=== PATIENT | female | born 1980 | race Caucasian/White ===

== ENCOUNTER 2022-10-29 09:18 | Inpatient (IN) ==
[2022-10-29] MEDS ORDERED: KETOROLAC TROMETHAMINE 15 MG/ML VIAL IV STA (09:31)
[2022-10-29] MEDS ORDERED: SODIUM CHLORIDE 0.9% 1000ML 1,000 ML IV STA (09:31)
[2022-10-29] MEDS ORDERED: ONDANSETRON INJ 2 MG/ML 2 ML VIAL IV STA (09:31)
[2022-10-29 10:08] LABS: Hematocrit (blood only) 46.4 % (37.0-47.0); Hemoglobin 16.1 g/dl (12.0-16.0); Mean Corpuscular Hemoglobin 34.9 pg (25.0-34.0); Mean Corpuscular Hgb Conc 34.7 g/dL (32.0-36.0); Mean Corpuscular Volume 100.7 fL (80.0-100.0); Mean Platelet Volume 9.6 fL (9.4-12.4); Platelet Count 177 K/uL (130-400); RDW Coefficient of Variation 12.6 % (11.5-14.5); RDW Standard Deviation 47.1 fL (36.4-46.3); Red Blood Count 4.61 M/uL (4.20-5.40); White Blood Count 8.29 K/ul (4.8-10.8)
--- NOTE | 2022-10-29 10:09 | Emergency Department Note ---
Impression & Plan Hydronephrosis due to obstruction of ureter, Kidney stone on left side, Pyelonephritis ED Provider Note NAME: NATHAN REDDY AGE: 41 SEX: F : 1980 ARRIVES VIA: Walk-In INFORMANT: Patient, ED PROVIDER(S): Rl Barbosa DO CHIEF COMPLAINT: Flank pain HPI: Patient is a 41-year-old female who presented to the emergency department with chills. The patient has been treated for urinary tract infection over the course the last month multiple times. The patient started having shaking and chills and it was advised that she go to the emergency department. She has no history of kidney stones. She has seen her GI doctor for abdominal bloating recently. She denies having any vomiting. She denies having any rectal bleeding. Last time she had a urinalysis she was told it was positive for hematuria. She denies having any difficulty breathing or chest pain. ROS: See above HPI for pertinent positives & negatives. A total of 10 systems reviewed and were otherwise negative. PAST MEDICAL HISTORY: See Below PAST SURGICAL HISTORY: See Below FAMILY HISTORY: See Below SOCIAL HISTORY: See Below HOME MEDICATIONS: See Below ALLERGIES: See Below VITALS: See Below PHYSICAL EXAMINATION: GENERAL: The patient is awake and alert. The patient is very anxious. EYES: The conjunctivae are clear. The pupils are round and reactive. EARS, NOSE, MOUTH AND THROAT: The nose is without any evidence of any deformity. NECK: The neck is nontender and supple. RESPIRATORY: Normal respiratory effort is noted there is no evidence of wheezing rhonchi or rales CARDIOVASCULAR: Regular rate and rhythm noted there no murmurs rubs or gallops normal S1 normal S2. GASTROINTESTINAL: The abdomen was mildly distended. There is diffuse tenderness to palpation but no guarding rigidity. BACK: No midline tenderness or or step-off noted range of motion in flexion extension as well as rotation no signs of muscle spasm noted MUSCULOSKELETAL/EXTREMITIES: There is no evidence of gross deformity full range of motion is noted in the hips and shoulders. SKIN: There is no obvious evidence of any rash. There are no petechiae, pallor or cyanosis noted. NEUROLOGIC: Patient is awake alert and oriented x3 strength is symmetric pat ellar reflexes are 2+ bilaterally MEDICAL DECISION MAKING: The patient is a 41-year-old female who presented to the emergency department for an evaluation of flank pain. The patient's had intermittent episodes of urinary tract infection over the last month but recently she started developing left-sided flank pain. She presented to the emergency department because of rigors. The patient was treated with IV fluids in the emergency department. She was also treated with pain medication. On reevaluation she was feeling much better. Urinalysis does appear to be consistent with infection so she was given IV antibiotic but CT appears to be consistent with an obstructing left proximal ureteral calculus. For this reason I discussed patient's case with urology. They evaluated the patient in the emergency department and felt the patient was a good candidate for a stent. Medically the patient may require further treatment for the infection. For this reason I discussed the patient's case with the on-call [facility] hospitalist group. They have agreed to evaluate the patient in the emergency department. Triage Nursing notes reviewed. Prior medical records reviewed Vital Signs: reviewed and remarkable for no significant abnormalities Differential diagnosis: Renal colic, UTI, appendicitis, diverticulitis, mesenteric ischemia, aortic pathology, infections, inflammatory bowel disease, PUD, biliary pathology, as well as other pathologies. ER treatment provided: See below Diagnostics interpreted by me: ECG: none Cardiac Monitoring: An order was placed for continuous cardiac monitoring. The monitor shows a rate of 80 bpm with sinus rhythm. Laboratory studies: As stated above and show below. Imaging studies: See below. Radiographic imaging was reviewed by myself Consultation(s): I discussed this case with Sushma who is on for the urology group. I discussed this case with Dr. Lindsey who is on-call for the [facility] hospitalist group. Past Med/Surg History Medical History Anxiety Chronic headaches Surgical History H/O: hysterectomy Hx of cholecystectomy Social History Smoking Status: Current every day smoker Tobacco Type: Cigarettes Age Started Using Tobacco: 15; Do You Dip or Chew Tobacco: No; Hx Alcohol Use: Yes Hx Substance Use: No Preferred Language: Estonian Feels Safe at Home: Yes Allergies Allergies Allergy/AdvReac Type Severity Reaction Status Date / Time Penicillins Allergy Severe THROAT Verified 10/29/22 12:53 SWELLING Cephalosporins Allergy Unknown Unknown Unverified 10/29/22 12:53 dexmethylphenidate Allergy Unknown Unknown Unverified 10/29/22 12:53 Home Meds Home Medications Medication Instructions Recorded Confirmed alprazolam 0.5 mg tablet (Xanax) 0.5 mg PO TID PRN Anxiety 10/21/22 10/22/22 fluticasone propionate 50 2 spray intranasal DAILY 10/21/22 10/22/22 mcg/actuation nasal spray,suspension meclizine 25 mg tablet 25 mg PO TID PRN Vertigo 10/21/22 10/22/22 sumatriptan succinate 100 mg tablet See Rx Instructions PO .COMPLEX 10/21/22 10/22/22 cyanocobalamin (vitamin B-12) 1,000 mcg sublingual MONTHLY 10/22/22 10/22/22 1,000 mcg/mL sublingual drops Results & Data (ED) Vital Signs Vital Signs - 24 hr 10/29/22 09:20 10/29/22 09:54 10/29/22 10:36 Temperature 37.3 C Temperature Source Temporal Artery Scan Pulse Rate 107 H 100 H 97 H Pulse Rate [Left Finger] Pulse Rate from SpO2 Sensor Pulse Rhythm [Left Finger] Pulse Strength [Left Finger] Respiratory Rate 18 20 Respiratory Effort / Characteristics Respiratory Depth Respiratory Pattern Blood Pressure 147/82 H Blood Pressure [Right Arm] Blood Pressure Mean 103 Blood Pressure Mean [Right Arm] Blood Pressure Position [Right Arm] Pulse Oximetry 97 98 Oxygen Delivery Method Room Air Sepsis Recent Fever Within 48 Hours No Sepsis New/Unexplained Change in Mental Status N/A Sepsis Action Taken by Nursing No Action Required 10/29/22 10:35 10/29/22 11:00 10/29/22 11:00 Temperature Temperature Source Pulse Rate 97 H 100 H Pulse Rate [Left Finger] Pulse Rate from SpO2 Sensor 97 H 101 H Pulse Rhythm [Left Finger] Pulse Strength [Left Finger] Respiratory Rate 21 26 H Respiratory Effort / Characteristics Respiratory Depth Respiratory Pattern Blood Pressure 124/67 Blood Pressure [Right Arm] Blood Pressure Mean 100 Blood Pressure Mean [Right Arm] Blood Pressure Position [Right Arm] Pulse Oximetry 93 92 Oxygen Delivery Method Sepsis Recent Fever Within 48 Hours Sepsis New/Unexplained Change in Mental Status Sepsis Action Taken by Nursing 10/29/22 11:30 10/29/22 11:30 08/25/23 14:20 Temperature 37 C Temperature Source Oral Pulse Rate 83 Pulse Rate [Left Finger] 88 Pulse Rate from SpO2 Sensor 89 Pulse Rhythm [Left Finger] Regular Pulse Strength [Left Finger] Normal Respiratory Rate 23 18 Respiratory Effort / Characteristics Non-Labored Spontaneous Respiratory Depth Normal Respiratory Pattern Regular Blood Pressure 108/70 Blood Pressure [Right Arm] 110/70 Blood Pressure Mean 75 Blood Pressure Mean [Right Arm] 83 Blood Pressure Position [Right Arm] Lying Pulse Oximetry 92 93 Oxygen Delivery Method Room Air Sepsis Recent Fever Within 48 Hours Sepsis New/Unexplained Change in Mental Status Sepsis Action Taken by Snf Medications Current Medication List: was personally reviewed by me Laboratory Data Attestation: I reviewed the patient's lab results. 10/29/22 09:50 10/29/22 09:50 Lab Results 10/29/22 10/29/22 10/29/22 Range/Units 09:50 09:50 10:20 WBC 8.29 (4.8-10.8) K/ul RBC 4.61 (4.20-5.40) M/uL Hgb 16.1 H (12.0-16.0) g/dl Hct 46.4 (37.0-47.0) % MCV 100.7 H (80.0-100.0) fL MCH 34.9 H (25.0-34.0) pg MCHC 34.7 (32.0-36.0) g/dL RDW Std Deviation 47.1 H (36.4-46.3) fL RDW Coeff of Trudi 12.6 (11.5-14.5) % Plt Count 177 (130-400) K/uL MPV 9.6 (9.4-12.4) fL Immature Gran % (Auto) 0.2 % Neut % (Auto) 90.5 % Lymph % (Auto) 7.0 % [place] % (Auto) 0.7 % Eos % (Auto) 1.2 % Baso % (Auto) 0.4 % Neut # (Auto) 7.50 H (1.40-6.50) K/uL Lymph # (Auto) 0.58 L (1.20-3.40) K/uL [place] # (Auto) 0.06 L (0.11-0.59) K/uL Eos # (Auto) 0.10 (0.00-0.50) K/uL Baso # (Auto) 0.03 (0.00-0.20) K/uL Immature Gran # (Auto) 0.02 (0.01-0.20) K/uL Toxic Vacuolation 2+ Sodium 140 (136-145) mmol/L Potassium 3.6 (3.5-5.1) mmol/L Chloride 110 H (98-107) mmol/L Carbon Dioxide 21 (21-32) mmol/L Anion Gap 9 (3-11) BUN 13 (6-23) mg/dl Creatinine 0.72 (0.6-1.2) mg/dl Est Cr Clr Drug Dosing 87.5 ml/min Est GFR ( Amer) 119.7 ml/min Est GFR (Non-Af Amer) 103.3 ml/min BUN/Creatinine Ratio 18.1 (10-20) Glucose 96 (70-99(Fasting)) mg/dl Calcium 9.6 (8.6-10.3) mg/dl Total Bilirubin 0.9 (0.2-1.0) mg/dl AST 23 (13-39) U/L ALT 24 (7-52) U/L Alkaline Phosphatase 69 (34-104) U/L Total Protein 7.3 (6.0-8.3) gm/dl Albumin 4.4 (3.4-5.0) gm/dl Globulin 2.9 (2.5-4.0) gm/dl Albumin/Globulin Ratio 1.5 (0.9-2) Lipase 14 (11-82) U/L Urine Color [place] Urine Appearance Clear (Clear) Urine pH 5.5 (4.5-7.5) Ur Specific [place] 1.012 (1.000-1.030) Urine Protein Trace H (Negative) Urine Glucose (UA) Negative (Negative) Urine Ketones Negative (Negative) Urine Blood 1+ H (Negative) Urine Nitrite Positive A (Negative) Urine Bilirubin Negative (Negative) Urine Urobilinogen Negative (Negative) Ur Leukocyte Esterase 2+ H (Negative) Urine WBC (Auto) >30 H (0-5) /hpf Urine RBC (Auto) 5-10 H (0-4) /hpf U Hyaline Cast (Auto) 1-5 (0-5) /lpf U Epithel Cells (Auto) 0-5 (0-5) /lpf Urine Bacteria (Auto) Negative (Negative) Administered Medications Discontinued Medications Sodium Chloride (Nss 1000ml) 1,000 mls @ 999 mls/hr IV .Q1H1M STA Stop: 10/29/22 10:31 Last Infusion: 10/29/22 10:51 Dose: 0 mls/hr Documented By: Admin: 10/29/22 09:56 Dose: 999 mls/hr Documented By: RSL Ceftriaxone Sodium (Rocephin) 2,000 mg in 70 mls @ 140 mls/hr IV NOW STA Stop: 10/29/22 11:26 Last Infusion: 10/29/22 12:06 Dose: 0 mls/hr Documented By: Admin: 10/29/22 11:37 Dose: 140 mls/hr Documented By: RSL Pantoprazole Sodium 40 mg/ (Syringe) 10 mls @ 5 mls/min IV NOW STA Stop: 10/29/22 12:48 Last Admin: 10/29/22 13:27 Dose: 5 mls/min Documented By: RSL Ketorolac Tromethamine (Ketorolac Tromethamine 15 Mg/Ml Vial) 10 mg IV NOW STA Stop: 10/29/22 09:32 Last Admin: 10/29/22 09:57 Dose: 10 mg Documented By: RSL Ondansetron HCl (Ondansetron Inj 2 Mg/Ml 2 Ml Vial) 4 mg IV NOW STA Stop: 10/29/22 09:32 Last Admin: 10/29/22 09:56 Dose: 4 mg Documented By: RSL Imaging Data Attestation: I personally reviewed and interpreted this imaging study as follows: My Impression: CT of the abdomen and pelvis was obtained in the emergency department. My interpretation is proximal of the left ureteral calculus, hydronephrosis noted, final report below. Radiologist's Impression: Abdomen/Pelvis CT 10/29/22 09:[address] WITHOUT CONTRAST CT DOSE: 1053.16 mGy.cm HISTORY: Acute left-sided flank pain left flank pain TECHNIQUE: Multiaxial CT images of the abdomen and pelvis were performed without contrast. A dose lowering technique was utilized adhering to the principles of ALARA. COMPARISON STUDY: None. FINDINGS: Mild bibasilar atelectasis. No free air. The unenhanced spleen, pancreas and adrenal glands are unremarkable. Cholecystectomy. A few cysts within the liver measure up to 9 mm. There are at least 3 nonobstructing calculi in the right kidney measuring up to 4 mm. There are at least 7 nonobstructing calculi of the left kidney measuring up to 5 mm. Moderate left-sided hydroureteronephrosis secondary to an obstructing 6 x 5 x 7 mm calculus of the upper left ureter just distal to the ureteropelvic junction at the level of the superior endplate L3. Mild associated urothelial thickening with perinephric stranding. Partial distention of the urinary bladder. The uterus appears surgically absent. Atherosclerosis of the aorta without aneurysm. Small to moderate hiatal hernia. There is no small bowel obstruction identified. Mild to moderate colonic fecal retention. Normal appendix. Tiny fat filled umbilical hernia. No acute fracture. IMPRESSION: 1. Moderate left-sided hydroureteronephrosis secondary to an obstructing 7 mm calculus of the upper left ureter. 2. Nonobstructing bilateral nephrolithiasis. 3. Normal appendix. 4. Cholecystectomy and hysterectomy. ACT 112: Negative or not required by law. The above report was generated using voice recognition software. It may contain grammatical, syntax or spelling errors. Electronically signed by: Jacek Rodriguez M.D. 10/29/2022 10:24 AM Discharge Plan Visit Data Chief Complaint: Referred by Doctor Stated Complaint: KIDNEY PAINS, SHAKING, REF B DOC ED Provider: Rl Barbosa Discharge Problem: Hydronephrosis due to obstruction of ureter, Kidney stone on left side, Pyelonephritis Patient Disposition: Admitted As Inpatient Discharge Instructions Interventions: ED Discharge Assessment Last Done: 10/29/22 14:14
--- NOTE | 2022-10-29 10:26 | CT Scan Report ---
ABDOMEN AND PELVIS CT WITHOUT CONTRAST CT DOSE: 1053.16 mGy.cm HISTORY: Acute left-sided flank pain left flank pain TECHNIQUE: Multiaxial CT images of the abdomen and pelvis were performed without contrast. A dose lo wering technique was utilized adhering to the principles of ALARA. COMPARISON STUDY: None. FINDINGS: Mild bibasilar atelectasis. No free air. The unenhanced spleen, pancreas and adrenal glands are unremarkable. Cholecystectomy. A few cysts within the liver measure up to 9 mm. There are at least 3 nonobstructing calculi in the right kidney measuring up to 4 mm. There are at le ast 7 nonobstructing calculi of the left kidney measuring up to 5 mm. Moderate left-sided hydroureter onephrosis secondary to an obstructing 6 x 5 x 7 mm calculus of the upper left ureter just distal to the ureteropelvic junction at the level of the superior endplate L3. Mild associated urothelial thick ening with perinephric stranding. Partial distention of the urinary bladder. The uterus appears surgi [place] absent. Atherosclerosis of the aorta without aneurysm. Small to moderate hiatal hernia. There is no small bowel obstruction identified. Mild to moderate col onic fecal retention. Normal appendix. Tiny fat filled umbilical hernia. No acute fracture. IMPRESSION: 1. Moderate left-sided hydroureteronephrosis secondary to an obstructing 7 mm calculus of the upper l eft ureter. 2. Nonobstructing bilateral nephrolithiasis. 3. Normal appendix. 4. Cholecystectomy and hysterectomy. ACT 112: Negative or not required by law. The above report was generated using voice recognition software. It may contain grammatical, syntax o r spelling errors. Electronically signed by: Jacek Rodriguez M.D. 10/29/2022 10:24 AM
[2022-10-29 10:28] LABS: Basophils # (auto) 0.03 K/uL (0.00-0.20); Basophils % (auto) 0.4 %; Eosinophils % (auto) 1.2 %; Immature Granulocytes # (auto) 0.02 K/uL (0.01-0.20); Immature Granulocytes % (auto) 0.2 %; Lymphocytes # (auto) 0.58 K/uL (1.20-3.40); Monocytes # (auto) 0.06 K/uL (0.11-0.59); Monocytes % (auto) 0.7 %; Neutrophils % (auto) 90.5 %; Toxic Vacuolation 2+
[2022-10-29 10:29] LABS: Albumin Globulin Ratio 1.5 (0.9-2); Albumin Level 4.4 gm/dl (3.4-5.0); BUN Creatinine Ratio 18.1 (10-20); Bilirubin,Total 0.9 mg/dl (0.2-1.0); Calcium 9.6 mg/dl (8.6-10.3); Creatinine Clr Calc Pharmacy 87.5 ml/min; Est GFR (African American) 119.7 ml/min; Est GFR (Non-African American) 103.3 ml/min; Globulin 2.9 gm/dl (2.5-4.0); Potassium 3.6 mmol/L (3.5-5.1); Total Protein 7.3 gm/dl (6.0-8.3)
[2022-10-29 10:35] LABS: Appearance Urine Clear (Clear); Bacteria Urine Automated Negative (Negative); Bilirubin Urine Negative (Negative); Blood Urine 1+ (Negative); Color Urine Orange; Epithelial Cell Urine Auto 0-5 /lpf (0-5); Glucose Urine UA Negative (Negative); Ketones Urine Negative (Negative); Leukocyte Esterase Urine 2+ (Negative); Nitrite Urine Positive (Negative); Protein Urine Trace (Negative); Specific Gravity Urine 1.012 (1.000-1.030); Urobilinogen Urine Negative (Negative); WBC Urine Automated >30 /hpf (0-5); pH Urine 5.5 (4.5-7.5)
[2022-10-29] MEDS ORDERED: cefTRIAXone SODIUM 2,000 MG/70 ML BAG IV STA (10:57)
--- NOTE | 2022-10-29 12:28 | History & Physical Report ---
Date of Service October 29, 2022 Assessment & Plan (1) Ureterolithiasis: Plan: 7mm upper left ureter with moderate left-sided hydronephrosis NPO for possible ureteral stent Consult urology (2) GERD (gastroesophageal reflux disease): Plan: with dysphagia - planning on outpatient EGD IV pantoprazole while NPO, switch back to PO once able to eat (3) UTI (urinary tract infection): Plan: Follow up urine culture Ceftriaxone 1g IV daily (4) Hydronephrosis: Plan VTE Prophylaxis - low risk Diet - NPO pending stent decision Disposition - admit to med/surg Admission and Anticipated Discharge Date Admission Date: October 29, 2022 History of Present Illness Chief Complaint: Dysuria Primary Care Provider: Maycol Taveras DO Myla Ramirez is a 41 year old female who presents to the ER severe low left back pain. Chills started today. No objective fever. Severity 7/10, currently 0/10. Woke up with pain around 4am. Pressure, dysuria, urgency, low grade fevers started 10/02 - cefdinir didn't help therefore switched to Bactrim on October 07 for 7 days. Urine culture grew Klebsiella aerogenes - unknown sensitivities. Bactrim improved symptoms but did not go away completely. Taking Azo on and off since finishing the Bactrim and had lab work and repeat urine culture although these are not available on admission. Last ate and drank 8am today. No prior [place] or stroke. Smokes half a pack/day. Allergies Allergy/AdvReac Type Severity Reaction Status Date / Time Penicillins Allergy Severe THROAT Verified 10/29/22 12:53 SWELLING Cephalosporins Allergy Unknown Unknown Unverified 10/29/22 12:53 dexmethylphenidate Allergy Unknown Unknown Unverified 10/29/22 12:53 Home Medications Medication Instructions Recorded Confirmed Type alprazolam 0.5 mg tablet (Xanax) 0.5 mg PO TID PRN Anxiety 10/21/22 10/29/22 History fluticasone propionate 50 2 spray intranasal DAILY 10/21/22 10/22/22 History mcg/actuation nasal spray,suspension meclizine 25 mg tablet 25 mg PO TID PRN Vertigo 10/21/22 10/22/22 History sumatriptan succinate 100 mg tablet See Rx Instructions PO .COMPLEX 10/21/22 10/29/22 History cyanocobalamin (vitamin B-12) 1,000 mcg sublingual MONTHLY 10/22/22 10/22/22 History 1,000 mcg/mL sublingual drops Past Med/Surg History Medical History Anxiety Chronic headaches Surgical History H/O: hysterectomy Hx of cholecystectomy Social History Smoking Status: Current every day smoker Tobacco Type: Cigarettes Age Started Using Tobacco: 15; Do You Dip or Chew Tobacco: No; Hx Alcohol Use: Yes Alcohol type: beer Hx Substance Use: No Preferred Language: Samoan Communication Ability: Effective Supervisor Conditioning Yard Required: No Beliefs That Will Affect Care: None Current Living Situation: Spouse Other Information That Helps Us Care for You: No Feels Safe at Home: Yes Safety Concerns: Feels Safe At This Time Assistive Devices: None Review of Systems Review of Systems: All systems reviewed & are unremarkable except as noted in HPI & below Physical Exam Constitutional: WD/WN, vitals as above ENMT: external ear and nose normal, oropharynx normal Respiratory: normal respiratory effort, lungs clear to auscultation Cardiovascular: RRR, no murmur, no edema Gastrointestinal (Abdomen): normal bowel sounds, soft, nontender, no hepatosplenomegaly Musculoskeletal: no cyanosis or clubbing, extremities motor strength 5/5 Skin: no rashes, warm and dry Neurologic: moves all extremities and awake; not confused Psychiatric: A+Ox3, euthymic affect Genitourinary: + CVA tenderness (left) Results & Data Results & Data Vital Signs (Past 12 Hours) Vital Signs Temp Pulse Resp BP Pulse Ox O2 Del Method 10/29/22 11:30 83 23 92 10/29/22 11:30 108/70 10/29/22 11:00 100 H 26 H 92 10/29/22 11:00 124/67 10/29/22 10:35 97 H 21 93 10/29/22 10:36 97 H 10/29/22 09:54 100 H 20 98 Room Air 10/29/22 09:20 37.3 C 107 H 18 147/82 H 97 Laboratory Results Abnormal lab results 10/29/22 10/29/22 10/29/22 Range/Units 09:50 09:50 10:20 Hgb 16.1 H (12.0-16.0) g/dl MCV 100.7 H (80.0-100.0) fL MCH 34.9 H (25.0-34.0) pg RDW Std Deviation 47.1 H (36.4-46.3) fL Neut # (Auto) 7.50 H (1.40-6.50) K/uL Lymph # (Auto) 0.58 L (1.20-3.40) K/uL [place] # (Auto) 0.06 L (0.11-0.59) K/uL Chloride 110 H (98-107) mmol/L Urine Protein Trace H (Negative) Urine Blood 1+ H (Negative) Urine Nitrite Positive A (Negative) Ur Leukocyte Esterase 2+ H (Negative) Urine WBC (Auto) >30 H (0-5) /hpf Urine RBC (Auto) 5-10 H (0-4) /hpf Diagnostic Findings ABDOMEN AND PELVIS CT WITHOUT CONTRAST CT DOSE: 1053.16 mGy.cm HISTORY: Acute left-sided flank pain left flank pain TECHNIQUE: Multiaxial CT images of the abdomen and pelvis were performed without contrast. A dose lowering technique was utilized adhering to the principles of ALARA. COMPARISON STUDY: None. FINDINGS: Mild bibasilar atelectasis. No free air. The unenhanced spleen, pancreas and adrenal glands are unremarkable. Cholecystectomy. A few cysts within the liver measure up to 9 mm. There are at least 3 nonobstructing calculi in the right kidney measuring up to 4 mm. There are at least 7 nonobstructing calculi of the left kidney measuring up to 5 mm. Moderate left-sided hydroureteronephrosis secondary to an obstructing 6 x 5 x 7 mm calculus of the upper left ureter just distal to the ureteropelvic junction at the level of the superior endplate L3. Mild associated urothelial thickening with perinephric stranding. Partial distention of the urinary bladder. The uterus appears surgically absent. Atherosclerosis of the aorta without aneurysm. Small to moderate hiatal hernia. There is no small bowel obstruction identified. Mild to moderate colonic fecal retention. Normal appendix. Tiny fat filled umbilical hernia. No acute fracture. IMPRESSION: 1. Moderate left-sided hydroureteronephrosis secondary to an obstructing 7 mm calculus of the upper left ureter. 2. Nonobstructing bilateral nephrolithiasis. 3. Normal appendix. 4. Cholecystectomy and hysterectomy. Medications Administered ER Medications Given: NSS 1L bolus Ondansetron 4mg IV Toradol 10mg IV Ceftriaxone 2000mg IV Code Status & VTE Plan Code Status Full VTE Prophylaxis Plan VTE Prophylaxis will be ordered: No PG Care Time/CCT Total # of Minutes Spent Total Time Spent with Patient: Total time spent is greater than 50% in coordination of care (as documented) at patient's floor/unit and/or counseling patient: Coding Level of Care Code 22324 INT INP/OBS CARE MIN Diagnoses Ureterolithiasis N20.1 GERD (gastroesophageal reflux disease) K21.9 UTI (urinary tract infection) N39.0 Hydronephrosis N13.30
--- NOTE | 2022-10-29 12:31 | Urology Consultation ---
Date of Consultation October 29, 2022 Assessment & Plan (1) Ureterolithiasis: (2) Hydronephrosis: Plan 41yo/F who presented with left flank pain and chills/shakes admitted with an obstructing stone and concern for infection. CT abd pelvis notable for an obstructing 7mm proximal left ureteral stone. She is afebrile and hemodynamically stable. Labs show no leukocytosis and normal renal function. Urinalysis with positive nitrites, culture pending. She was also recently treated as outpatient for a positive culture with 2 different antibiotics. I do not have those culture results to review. Given the concern for infection in the setting of an obstructing left ureteral stone, will plan to proceed to the OR today for cystoscopy, left retrograde pyelogram, left ureteral stent placement. Risks and benefits were discussed with patient as per consent. Ureteral stents were discussed as well as postoperative issues and pain management. She is aware a second procedure will be necessary for stone treatment. All questions were answered. She received a dose of IV Rocephin in the ED. Keep NPO. Continue supportive care and pain management. Urology will follow. Attending note: Patient independently examined, interviewed, assessed and evaluated. Agree with note as above. Patient has obstructing stone. Had initially presented with some hypotension. Was having considerable chills. Does not have a measurable temperature most recently came back as 37. Blood pressure is now 110/70. Pulse is mildly elevated 88. Patient has nitrite positive urine. Has 8.29 white count. Creatinine was 0.72. Hemoglobin 16.1. Imaging was reviewed by myself. Has obstructing stone on the left with multiple stones in the left kidney. Has stones on the right side as well. Has hydronephrosis. Concern for possible obstruction with development of [place]. Had extensively discussed treatment options.Discussed options for conservative measure and maximum expulsion medical therapy and symptom controlled. Discussed ESWL. Discussed Ureteroscopy with extraction and/or laser lithotripsy. Risks and benefits were discussed. Stone free rates were also discussed as well as possibility of multiple procedures. Ureteral stents were discussed as well as post-operative issues and pain management. All questions were answered. Risks and benefits discussed at length for procedure. These include bleeding, infection, injury to surrounding tissues or organs, and risks associated with anesthesia. Patient states understanding and agrees to proceed. Will sign consent and proceed. Patient did have food/drink at 7 AM. Will need to hold until 3 PM in order to move forward. Patient has maintained n.p.o. status since. Is undergoing broad-spectrum IV antibiotics and supportive care. Plan to proceed with cystoscopy and left stent placement History of Present Illness History of Present Illness 41-year-old female who presented to the emergency department today with chills/shakes and left sided flank pain. She reported being treated for urinary tract infection over the course of the last month with several different antibiotics. She recently finished a course of Bactrim but notes persistent UTI symptoms and has been taking OTC AZO. She developed an acute onset of flank pain and chills/shakes this morning which prompted her arrival in the emergency department. She also reports associated hematuria and dysuria. On arrival to the ED, she was afebrile and hemodynamically stable. Labs show no leukocytosis and normal renal function. Urinalysis with 1+ blood, positive nitrites, 2+ LE, >30 WBC, 510 RBC, negative bacteria. Urine culture pending. She received IV fluids, Toradol, Zofran, and a dose of Rocephin in the ED. CT abdomen pelvis was obtained and notable for a 7 mm proximal left ureteral stone causing moderate hydronephrosis and additional bilateral nonobstructing stones. CT abd pelvis- 1. Moderate left-sided hydroureteronephrosis secondary to an obstructing 7 mm calculus of the upper left ureter. 2. Nonobstructing bilateral nephrolithiasis. 3. Normal appendix. 4. Cholecystectomy and hysterectomy. Patient examined at bedside in the ED. Awake, resting in bed on arrival. No acute distress. She reports pain has improved following IV Toradol. Denies fevers, chills, nausea, vomiting at present. Voiding without issue. Reports some hematuria and dysuria. She had slimfast around 7 AM. She denies a prior history of stones. Allergies Allergy/AdvReac Type Severity Reaction Status Date / Time Penicillins Allergy Severe THROAT Verified 10/29/22 12:53 SWELLING Cephalosporins Allergy Unknown Unknown Unverified 10/29/22 12:53 dexmethylphenidate Allergy Unknown Unknown Unverified 10/29/22 12:53 Home Medications Medication Instructions Recorded Confirmed Type alprazolam 0.5 mg tablet (Xanax) 0.5 mg PO TID PRN Anxiety 10/21/22 10/22/22 History fluticasone propionate 50 2 spray intranasal DAILY 10/21/22 10/22/22 History mcg/actuation nasal spray,suspension meclizine 25 mg tablet 25 mg PO TID PRN Vertigo 10/21/22 10/22/22 History sumatriptan succinate 100 mg tablet See Rx Instructions PO .COMPLEX 10/21/22 10/22/22 History cyanocobalamin (vitamin B-12) 1,000 mcg sublingual MONTHLY 10/22/22 10/22/22 History 1,000 mcg/mL sublingual drops Patient History Medical History Anxiety Chronic headaches Surgical History H/O: hysterectomy Hx of cholecystectomy Social History Smoking Status: Current every day smoker Tobacco Type: Cigarettes Age Started Using Tobacco: 15; Do You Dip or Chew Tobacco: No; Hx Alcohol Use: Yes Hx Substance Use: No Preferred Language: Latvian Feels Safe at Home: Yes Review of Systems Review of Systems: All systems reviewed & are unremarkable except as noted in HPI & below Physical Exam Constitutional: well developed and well nourished; no acute distress Eyes: eyes not dysmorphic ENMT: Ears: no hearing impairment Neck: normal visual inspection Respiratory: normal respiratory effort; no respiratory distress and no labored breathing Musculoskeletal: Head/Neck/Chest: normocephalic Skin: No visible rashes or lesions to exposed skin areas Neurologic: moves all extremities and awake Psychiatric: A+Ox3, euthymic affect Results & Data Vital Signs (Past 12 Hours) Vital Signs Temp Pulse Resp BP Pulse Ox O2 Del Method 10/29/22 11:30 83 23 92 10/29/22 11:30 108/70 10/29/22 11:00 100 H 26 H 92 10/29/22 11:00 124/67 10/29/22 10:35 97 H 21 93 10/29/22 10:36 97 H 10/29/22 09:54 100 H 20 98 Room Air 10/29/22 09:20 37.3 C 107 H 18 147/82 H 97 PG Care Time/CCT Total # of Minutes Spent Total Time Spent with Patient: Total time spent is greater than 50% in coordination of care (as documented) at patient's floor/unit and/or counseling patient: Coding Level of Care Code 48304 IN/OBS CONSULT LVL 4,60M Diagnoses Ureterolithiasis N20.1 Hydronephrosis N13.30
[2022-10-29] MEDS ORDERED: PANTOprazole 40 MG in SYRINGE 0 ML IV STA (12:47)
--- NOTE | 2022-10-29 14:27 | Anesthesiology Consultation ---
Date of Service October 29, 2022 History Surgery Operation Date: 10/29/22 08:45 Proposed Procedures p Cystoscopy, Left Retrograde Pyelogram, Left Stent Placement - Donovan John DO Height/Weight Height: 5 ft 1 in Weight: 64.4 kg Allergies Allergy/AdvReac Type Severity Reaction Status Date / Time Penicillins Allergy Severe THROAT Verified 10/29/22 12:53 SWELLING Cephalosporins Allergy Unknown Unknown Unverified 10/29/22 12:53 dexmethylphenidate Allergy Unknown Unknown Unverified 10/29/22 12:53 Medications Home Medications Medication Instructions Recorded Confirmed Last Taken alprazolam 0.5 mg tablet (Xanax) 0.5 mg PO TID PRN Anxiety 10/21/22 10/22/22 Unknown fluticasone propionate 50 2 spray intranasal DAILY 10/21/22 10/22/22 Unknown mcg/actuation nasal spray,suspension meclizine 25 mg tablet 25 mg PO TID PRN Vertigo 10/21/22 10/22/22 Unknown sumatriptan succinate 100 mg tablet See Rx Instructions PO .COMPLEX 10/21/22 10/22/22 Unknown cyanocobalamin (vitamin B-12) 1,000 mcg sublingual MONTHLY 10/22/22 10/22/22 Unknown 1,000 mcg/mL sublingual drops Past Medical History Medical History Anxiety Chronic headaches Past Surgical History Surgical History H/O: hysterectomy Hx of cholecystectomy Social History Smoking Status: Current every day smoker Do You Dip or Chew Tobacco: No Hx Alcohol Use: Yes Hx Substance Use: No Review of Systems ROS Unobtainable: All systems reviewed & are unremarkable except as noted in HPI & below Physical Exam Vital Signs Last Vital Signs Temp 37 C 10/29/22 14:20 Pulse 88 10/29/22 14:20 Resp 18 10/29/22 14:20 BP 110/70 10/29/22 14:20 Pulse Ox 93 10/29/22 14:20 O2 Del Method Room Air 10/29/22 14:20 Constitutional WD/WN, vitals as above well developed and well nourished; no acute distress Eyes eyes not dysmorphic ENMT external ear and nose normal, oropharynx normal Ears: no hearing impairment Neck normal visual inspection Respiratory normal respiratory effort, lungs clear to auscultation normal respiratory effort; no respiratory distress and no labored breathing Cardiovascular RRR, no murmur, no edema Gastrointestinal (Abdomen) normal bowel sounds, soft, nontender, no hepatosplenomegaly Musculoskeletal no cyanosis or clubbing, extremities motor strength 5/5 Head/Neck/Chest: normocephalic Skin no rashes, warm and dry Neurologic moves all extremities and awake; not confused Psychiatric A+Ox3, euthymic affect Genitourinary + CVA tenderness (left) Testing Laboratory Results 10/29/22 09:50 10/29/22 09:50 Urine Color [place] 10/29/22 10:20 Urine Appearance Clear (Clear) 10/29/22 10:20 Urine pH 5.5 (4.5-7.5) 10/29/22 10:20 Ur Specific Procious 1.012 (1.000-1.030) 10/29/22 10:20 Urine Protein Trace (Negative) H 10/29/22 10:20 Urine Glucose (UA) Negative (Negative) 10/29/22 10:20 Urine Ketones Negative (Negative) 10/29/22 10:20 Urine Nitrite Positive (Negative) A 10/29/22 10:20 Ur Leukocyte Esterase 2+ (Negative) H 10/29/22 10:20 Urine WBC (Auto) >30 /hpf (0-5) H 10/29/22 10:20 Urine RBC (Auto) 5-10 /hpf (0-4) H 10/29/22 10:20 U Hyaline Cast (Auto) 1-5 /lpf (0-5) 10/29/22 10:20 U Epithel Cells (Auto) 0-5 /lpf (0-5) 10/29/22 10:20 Urine Bacteria (Auto) Negative (Negative) 10/29/22 10:20
[2022-10-29] MEDS ORDERED: MIDAZOLAM HCL 1 MG/ML 2ML VIAL ONE (14:40)
[2022-10-29] MEDS ORDERED: fentaNYL citrate PF 100 MCG/2 ML VIAL ONE (14:41)
[2022-10-29] MEDS ORDERED: DEXAMETHASONE SOD INJ 4 MG/ML VIAL ONE (14:43)
[2022-10-29] MEDS ORDERED: LIDOCAINE 2% 2 ML VIAL/AMP(20MG/ML) INFIL ONE (14:43)
[2022-10-29] MEDS ORDERED: ONDANSETRON INJ 2 MG/ML 2 ML VIAL ONE (14:43)
[2022-10-29] MEDS ORDERED: PROPOFOL IV EMULSION 10 MG/ML 20 ML VIAL IV ONE (14:43)
[2022-10-29] MEDS ORDERED: ePHEDrine sulfate 50 MG/ML AMP IV PRN (14:56)
[2022-10-29] MEDS ORDERED: ATROPINE SULFATE 0.1 MG/ML 10ML SYR IV PRN (14:56)
[2022-10-29] MEDS ORDERED: PHENYLEPHRINE 100MCG/ML 5ML SYR ONE (15:27)
--- NOTE | 2022-10-29 15:41 | Operative Report ---
[facility] Post Operative Report Pre & Post Diagnosis Obstructing Left Stone Same Operation Date: 10/29/22 08:45 <No data on this case meets the specified criteria> I identified the patient and participated in the time-out.: Yes Procedure Cystoscopy with left retrograde pyelogram, aspiration of urine, and stent placement Operation Date: 10/29/22 08:45 <No data on this case meets the specified criteria> Surgeon Donvoan John, II, DO Oil Dispenser None Estimated Blood Loss 1 Findings Consistent with Post-Op Diagnosis Stent placed in good position. Dark urine from left kidney Specimens Urine left kidney Drains 6 Fr x 26 Left Anesthesia Type MAC Complications none Disposition Disposition: Recovery Room Indications Patient with obstruction. Risks and benefits discussed at length. Description of Procedure Patient was consented and brought back to the operating room. Patient was placed under anesthesia in the supine position and moved to the dorsal lithotomy position. Patient was prepped and draped in the regular sterile fashion. A time out was completed. A 30degree Cystoscope was placed into the bladder and the entire bladder was examined. The UO's were identified. The UO was cannulized with a catheter, urine was aspirated, and a retrograde pyelogram was completed. A wire was then placed. With the wire in place, a 6 Fr Double J stent was placed. It was confirmed with fluoroscopy. With the stent in place, the bladder was emptied. The scope was removed. The patient was cleaned, aroused from anesthesia, and transferred to the pacu in stable condition having tolerated the procedure well with no complications. I was present and participated in all aspects of the procedure. The patient will be monitored in the PACU until transferred. Plan for 1-2 weeks of antibiotics with plan for stone treatment once clear. Monitor overnight with IV abx and supportive care. I attest to the content of the Intraoperative Record and any orders documented therein. Any exceptions are noted below.
[2022-10-29] MEDS ORDERED: DIATRIZOATE MEGLUMINE 30% 100ML VIAL INSTIL PRN (15:51)
--- NOTE | 2022-10-29 16:09 | Anesthesiology Progress Note ---
Date of Service October 29, 2022 Anesthesia Post Procedure Vital Signs Vital Signs: Temp Pulse Pulse Pulse Resp BP BP 10/29/22 16:00 37.2 C 86 18 105/65 10/29/22 15:50 82 20 99/55 L 10/29/22 15:44 36.8 C 78 14 89/62 L 10/29/22 14:20 37 C 88 18 110/70 10/29/22 11:30 83 23 10/29/22 11:30 108/70 10/29/22 11:00 100 H 26 H 10/29/22 11:00 124/67 10/29/22 10:35 97 H 21 10/29/22 10:36 97 H 10/29/22 09:54 100 H 20 10/29/22 09:20 37.3 C 107 H 18 147/82 H Pulse Ox O2 Del Method O2 Flow Rate 10/29/22 16:00 94 Room Air 10/29/22 15:50 96 Oxymask 4 10/29/22 15:44 94 Oxymask 4 10/29/22 14:20 93 Room Air 10/29/22 11:30 92 10/29/22 11:30 10/29/22 11:00 92 10/29/22 11:00 10/29/22 10:35 93 10/29/22 10:36 10/29/22 09:54 98 Room Air 10/29/22 09:20 97 Pain Intensity Abdomen: Pain Intensity: 7 Transfer of Care Handoff Completed per policy Notes Mental Status: alert / awake / arousable and participated in evaluation Patient Amnestic to Procedure: Yes Nausea / Vomiting: adequately controlled Pain: adequately controlled Airway Patency, RR, SpO2: stable & adequate BP & HR: stable & adequate Hydration State: stable & adequate Anesthetic Complications: no major complications apparent and Pt Satisfied with anesthetic care
--- NOTE | 2022-10-29 16:44 | Fluoroscopy Report ---
FL retrograde includes kub CLINICAL HISTORY: LEFT STENT PLACEMENT TECHNIQUE: 3 views were obtained with the C-arm in the OR with the above procedure. Total fluoroscopy time was 5.5 seconds. Radiation dose was 1.1 mGy. Comparison: Comparison is made to CT abdomen pelvis 10/29/2022 FINDINGS/IMPRESSION: Intraoperative images were obtained of double-J stent placement on the left. Please correlate with intraoperative fluoroscopy and operative report. ACT 112: Negative or not required by law. Electronically signed by: Isidoro Raya M.D. 10/29/2022 4:43 PM
[2022-10-29] MEDS: SODIUM CHLOR 0.45% + 20MEQ KCL 20 MEQ/1,000 ML BAG IV SCH ×2 (17:04→22:43)
[2022-10-29] MEDS: ACETAMINOPHEN 325 MG TAB PO PRN (17:38)
[2022-10-29] MEDS: KETOROLAC TROMETHAMINE 15 MG/ML VIAL IV PRN (20:17)
[2022-10-29] MEDS: PHENAZOPYRIDINE HCL 200 MG TAB PO PRN (22:42)
[2022-10-30] MEDS: PHENAZOPYRIDINE HCL 200 MG TAB PO PRN (05:24)
[2022-10-30] MEDS: ACETAMINOPHEN 325 MG TAB PO PRN (05:24)
[2022-10-30] MEDS: SODIUM CHLOR 0.45% + 20MEQ KCL 20 MEQ/1,000 ML BAG IV SCH (05:25)
--- NOTE | 2022-10-30 07:25 | Hospitalist Progress Note ---
Date of Service October 30, 2022 Assessment & Plan Admission and Anticipated Discharge Date Admission Date: October 29, 2022 Subjective Myla Ramirez is a 41 year old female who presents to the ER severe low left back pain. Chills started today. No objective fever. Severity 7/10, currently 0/10. Woke up with pain around 4am Results & Data Results & Data Vital Signs (Past 12 Hours) Vital Signs Temp Pulse Resp BP BP Pulse Ox O2 Del Method 10/29/22 22:52 36.6 C 71 16 117/70 96 Room Air 10/29/22 20:18 36.6 C 77 16 110/73 95 Room Air
[2022-10-30 08:17] LABS: Basophils # (auto) 0.05 K/uL (0.00-0.20); Basophils % (auto) 0.5 %; Eosinophils # (auto) 0.37 K/uL (0.00-0.50); Eosinophils % (auto) 3.4 %; Hematocrit (blood only) 38.1 % (37.0-47.0); Hemoglobin 12.5 g/dl (12.0-16.0); Immature Granulocytes # (auto) 0.05 K/uL (0.01-0.20); Immature Granulocytes % (auto) 0.5 %; Lymphocytes # (auto) 1.83 K/uL (1.20-3.40); Mean Corpuscular Hemoglobin 34.2 pg (25.0-34.0); Mean Corpuscular Hgb Conc 32.8 g/dL (32.0-36.0); Mean Corpuscular Volume 104.1 fL (80.0-100.0); Mean Platelet Volume 10.1 fL (9.4-12.4); Monocytes % (auto) 12.1 %; Neutrophils # (auto) 7.15 K/uL (1.40-6.50); Neutrophils % (auto) 66.5 %; Platelet Count 166 K/uL (130-400); RDW Coefficient of Variation 12.7 % (11.5-14.5); RDW Standard Deviation 48.8 fL (36.4-46.3); Red Blood Count 3.66 M/uL (4.20-5.40); White Blood Count 10.75 K/ul (4.8-10.8)
[2022-10-30 08:22] LABS: BUN Creatinine Ratio 23.8 (10-20); Calcium 8.1 mg/dl (8.6-10.3); Est GFR (African American) 128.2 ml/min; Est GFR (Non-African American) 110.6 ml/min
[2022-10-30] MEDS: KETOROLAC TROMETHAMINE 15 MG/ML VIAL IV PRN (09:28)
--- NOTE | 2022-10-30 10:14 | Discharge Summary ---
Date of Service October 30, 2022 Admission HPI Per Admitting Provider Myla Ramirez is a 41 year old female who presents to the ER severe low left back pain. Chills started today. No objective fever. Severity 09/13, currently 0/10. Woke up with pain around 4am. Pressure, dysuria, urgency, low grade fevers started 10/02 - cefdinir didn't help therefore switched to Bactrim on October 07 for 7 days. Urine culture grew Klebsiella aerogenes - unknown sensitivities. Bactrim improved symptoms but did not go away completely. Taking Azo on and off since finishing the Bactrim and had lab work and repeat urine culture although these are not available on admission. Last ate and drank 8am today. No prior [place] or stroke. Smokes half a pack/day. Admission Exam Per Admitting Provider Physical Exam Constitutional: WD/WN, vitals as above ENMT: external ear and nose normal, oropharynx normal Respiratory: normal respiratory effort, lungs clear to auscultation Cardiovascular: RRR, no murmur, no edema Gastrointestinal (Abdomen): normal bowel sounds, soft, nontender, no hepatosplenomegaly Musculoskeletal: no cyanosis or clubbing, extremities motor strength 5/5 Skin: no rashes, warm and dry Neurologic: moves all extremities and awake; not confused Psychiatric: A+Ox3, euthymic affect Principal Diagnosis Ureterolithiasis Hydronephrosis Discharge Data Allergies Allergy/AdvReac Type Severity Reaction Status Date / Time Penicillins Allergy Severe THROAT Verified 10/29/22 12:53 SWELLING Cephalosporins Allergy Unknown Unknown Unverified 10/29/22 12:53 dexmethylphenidate Allergy Unknown Unknown Unverified 10/29/22 12:53 Consultations 10/29/22 11:29 Consult Urology Stat 10/29/22 12:11 ED Decision to Admit Stat Procedures Performed Operation Date: 10/29/22 08:45 Actual Procedures p Cystoscopy, Left retrograde pyelogram, Left stent placement, Urine aspiration. (Left) - Donovan John, Ordered Studies Microbiology 10/29/22 15:32 Urine,Kidney Urine Culture - Preliminary No growth - Less than 1,000 colonies/mL, Final report to follow. 10/29/22 10:20 Urine,Clean Catch Urine Culture - Final Three types or organisms present, all moderate counts probable skin luis. No further identifications or sensitivities to follow. Labs 10/29/22 10/29/22 10/29/22 09:50 09:50 10:20 WBC 8.29 RBC 4.61 Hgb 16.1 H Hct 46.4 MCV 100.7 H MCH 34.9 H MCHC 34.7 RDW Std Deviation 47.1 H RDW Coeff of Trudi 12.6 Plt Count 177 MPV 9.6 Immature Gran % (Auto) 0.2 Neut % (Auto) 90.5 Lymph % (Auto) 7.0 Carver % (Auto) 0.7 Eos % (Auto) 1.2 Baso % (Auto) 0.4 Neut # (Auto) 7.50 H Lymph # (Auto) 0.58 L Carver # (Auto) 0.06 L Eos # (Auto) 0.10 Baso # (Auto) 0.03 Immature Gran # (Auto) 0.02 Toxic Vacuolation 2+ Sodium 140 Potassium 3.6 Chloride 110 H Carbon Dioxide 21 Anion Gap 9 BUN 13 Creatinine 0.72 Est Cr Clr Drug Dosing 87.5 Est GFR ( Amer) 119.7 Est GFR (Non-Af Amer) 103.3 BUN/Creatinine Ratio 18.1 Glucose 96 Calcium 9.6 Total Bilirubin 0.9 AST 23 ALT 24 Alkaline Phosphatase 69 Total Protein 7.3 Albumin 4.4 Globulin 2.9 Albumin/Globulin Ratio 1.5 Lipase 14 Urine Color [place] Urine Appearance Clear Urine pH 5.5 Ur Specific Alta 1.012 Urine Protein Trace H Urine Glucose (UA) Negative Urine Ketones Negative Urine Blood 1+ H Urine Nitrite Positive A Urine Bilirubin Negative Urine Urobilinogen Negative Ur Leukocyte Esterase 2+ H Urine WBC (Auto) >30 H Urine RBC (Auto) 5-10 H U Hyaline Cast (Auto) 1-5 U Epithel Cells (Auto) 0-5 Urine Bacteria (Auto) Negative 10/30/22 10/30/22 07:11 07:11 WBC 10.75 RBC 3.66 L Hgb 12.5 D Hct 38.1 MCV 104.1 H MCH 34.2 H MCHC 32.8 RDW Std Deviation 48.8 H RDW Coeff of Trudi 12.7 Plt Count 166 MPV 10.1 Immature Gran % (Auto) 0.5 Neut % (Auto) 66.5 Lymph % (Auto) 17.0 Carver % (Auto) 12.1 Eos % (Auto) 3.4 Baso % (Auto) 0.5 Neut # (Auto) 7.15 H Lymph # (Auto) 1.83 Carver # (Auto) 1.30 H Eos # (Auto) 0.37 Baso # (Auto) 0.05 Immature Gran # (Auto) 0.05 Toxic Vacuolation Sodium 139 Potassium 4.0 Chloride 113 H Carbon Dioxide 24 Anion Gap 2 L BUN 15 Creatinine 0.63 Est Cr Clr Drug Dosing 100.0 Est GFR ( Amer) 128.2 Est GFR (Non-Af Amer) 110.6 BUN/Creatinine Ratio 23.8 H Glucose 96 Calcium 8.1 L Total Bilirubin AST ALT Alkaline Phosphatase Total Protein Albumin Globulin Albumin/Globulin Ratio Lipase Urine Color Urine Appearance Urine pH Ur Specific Alta Urine Protein Urine Glucose (UA) Urine Ketones Urine Blood Urine Nitrite Urine Bilirubin Urine Urobilinogen Ur Leukocyte Esterase Urine WBC (Auto) Urine RBC (Auto) U Hyaline Cast (Auto) U Epithel Cells (Auto) Urine Bacteria (Auto) Retrograde Pyelogram 10/29/22 00:00 FL retrograde includes kub CLINICAL HISTORY: LEFT STENT PLACEMENT TECHNIQUE: 3 views were obtained with the C-arm in the OR with the above procedure. Total fluoroscopy time was 5.5 seconds. Radiation dose was 1.1 mGy. Comparison: Comparison is made to CT abdomen pelvis 10/29/2022 FINDINGS/IMPRESSION: Intraoperative images were obtained of double-J stent placement on the left. Please correlate with intraoperative fluoroscopy and operative report. ACT 112: Negative or not required by law. Electronically signed by: Isidoro Raya M.D. 10/29/2022 4:43 PM Abdomen/Pelvis CT 10/29/22 09:[address] WITHOUT CONTRAST CT DOSE: 1053.16 mGy.cm HISTORY: Acute left-sided flank pain left flank pain TECHNIQUE: Multiaxial CT images of the abdomen and pelvis were performed without contrast. A dose lowering technique was utilized adhering to the principles of ALARA. COMPARISON STUDY: None. FINDINGS: Mild bibasilar atelectasis. No free air. The unenhanced spleen, pancreas and adrenal glands are unremarkable. Cholecystectomy. A few cysts within the liver measure up to 9 mm. There are at least 3 nonobstructing calculi in the right kidney measuring up to 4 mm. There are at least 7 nonobstructing calculi of the left kidney measuring up to 5 mm. Moderate left-sided hydroureteronephrosis secondary to an obs tructing 6 x 5 x 7 mm calculus of the upper left ureter just distal to the ureteropelvic junction at the level of the superior endplate L3. Mild associated urothelial thickening with perinephric stranding. Partial distention of the urinary bladder. The uterus appears surgically absent. Atherosclerosis of the aorta without aneurysm. Small to moderate hiatal hernia. There is no small bowel obstruction identified. Mild to moderate colonic fecal retention. Normal appendix. Tiny fat filled umbilical hernia. No acute fracture. IMPRESSION: 1. Moderate left-sided hydroureteronephrosis secondary to an obstructing 7 mm calculus of the upper left ureter. 2. Nonobstructing bilateral nephrolithiasis. 3. Normal appendix. 4. Cholecystectomy and hysterectomy. ACT 112: Negative or not required by law. The above report was generated using voice recognition software. It may contain grammatical, syntax or spelling errors. Electronically signed by: Jacek Rodriguez M.D. 10/29/2022 10:24 AM 10/29/22 FL retrograde includes kub Routine 10/29/22 09:31 CT abd pelvis wo con Stat Hospital Course (1) UTI (urinary tract infection): (2) Kidney stone on left side: (3) Hydronephrosis due to obstruction of ureter: Plan 41-year-old female who presented to the emergency department today with chills/shakes and left sided flank pain. She reported being treated for urinary tract infection over the course of the last month with several different antibiotics. She developed an acute onset of flank pain and chills/shakes in the morning which prompted her arrival in the emergency department. - CT abdomen pelvis was obtained and notable for a 7 mm proximal left ureteral stone causing moderate hydronephrosis and additional bilateral nonobstructing stones. - Urology performed Cystoscopy with left retrograde pyelogram and stent placement - She received IV fluids, Toradol, Zofran, and a 2 dose of Rocephin - She was discharge with Ciprofloxacin 500 mg po BID for 7 days - Pyridium 200 mg PO TID PRN for pain Total Time Total Time Spent Total Time Spent (In Minutes): see attending attestation Discharge Plan Discharge Items Patient Disposition: Home - Self-Care Reason For Visit: INFECTED NEPHROLOTHIASIS, HYDONEPHROSIS Discharge Diagnosis: Left Ureterolithiasis with hydronephorsis Activity: Resume your previous activity Non-emergency contact: Primary Care Provider Call non-emergency contact if: you have any medication questions Follow-up/Referrals: Donovan John DO [Physician] - Maycol Taveras DO [Primary Care Provider] - Diet: Regular Addtl Attending Provider Instructions: You were admitted to our facility due to right sided flank pain and chills. You were found to have an obstructing proximal ureteral calculus and nephrolithiasis (kidney stones and ureteral stone). Due to this, you were taken to OR for a Cystoscopy with left retrograde pyelogram and stent placement (double J stent) by Urology. Additional you were found to have an UTI, you were treated with Rocephin during your overnight stay. You will continue with antibiotics daily for a week. Call your Urology on Tuesday for a follow up appointment. Follow up with your PCP within a week. New medications Ciprofloxacin 500 mg twice a day for 7 days Pyridium 200 mg three times a day for pain Pending Studies at Discharge: No Stand-Alone Forms: [facility], Work/School Release, Smoking Cessation Medications and DC Order Prescriptions: New ciprofloxacin HCl 500 mg tablet 500 mg PO BID 7 Days Qty: 14 0RF phenazopyridine [Pyridium] 200 mg Tablet 200 mg PO TID PRN (Reason: pain) Qty: 21 0RF Continued meclizine 25 mg tablet 25 mg PO TID PRN (Reason: Vertigo) fluticasone propionate 50 mcg/actuation spray,suspension 2 spray intranasal DAILY Rx Instructions: administer into each nostril sumatriptan succinate 100 mg tablet See Rx Instructions PO .COMPLEX Rx Instructions: take 1 tab at onset of headache; if no relief, may repeat 1 tab after at least 2 hrs; max = 2 tabs/24 hrs PO alprazolam [Xanax] 0.5 mg tablet 0.5 mg PO TID PRN (Reason: Anxiety) cyanocobalamin (vitamin B-12) 1,000 mcg/mL drops 1,000 mcg sublingual MONTHLY Discharge Orders: Discharge Order (Routine); Ordered 10/30/22 Ordered By: Robert Castellano Admission Data Admit Date/Time: 10/29/22 14:17 Attending Provider: Maya Finch Admit Provider: Boo Lindsey Primary Care Provider: Maycol Taveras Other Providers: Donovan John ; Boo Lindsey ; Donte Aldridge Other Interventions: Discharge Summary Assessment (RN) Last Done: 10/30/22 11:40 Supervising Physician Co-Signing Physician Notes Resident Physician Supervision Note: I independently interviewed and examined the patient and verified the [place] history and physical, reviewed labs and image studies and agree with resident findings and care plan. Resident Activity Tracking Resident Involvement: Resident Care Provided Care Provided: Adult Hospital Medicine
[2022-10-30] MEDS ORDERED: cefTRIAXone SODIUM 1,000 MG in DEXTROSE 5% 50 ML IV SCH (11:00)
== END 2022-10-30 12:56 | disposition home or self-care (01) | DRG 661 ==
LOC: ED 09:18 → 3N 14:16 → OR 14:16 → SUATTDRO 14:17 → 3N 14:17